=== PATIENT | female | born 1955 | race Hispanic/Latino ===

== ENCOUNTER 2017-02-21 11:43 | Emergency (ER) | payer SELFPAY ==
[~2017-02-21] VITALS: Ht 157.5 cm; Wt 85.0 kg
[~2017-02-21 11:43] MED LIST: AMBIEN5 MG PO; ATIVAN0.5 MG PO; BACTRIM DS1 TAB PO; BLOOD PRESSURE; BLOOD PRESSURE MED; CIPROFLOXACN500 MG PO; GLIPIZIDE10 MG PO; LISINOPRIL10 MG PO; LORTAB 5 OR; LORTAB 7.5 OR; METFORMIN500 MG PO; NAPROSYN500 MG PO; TOUJEO SOL300 UNIT/M SC; [UNRECOGNIZED DRUG - REMARK]
[2017-02-21] MEDS ORDERED: METFORMIN500 MG PO (12:21)
[2017-02-21] MEDS ORDERED: AMBIEN5 MG PO (12:22)
[2017-02-21 12:46] LABS: URINE BILIRUBIN - DIPSTICK NEGATIVE (NEGATIVE); URINE BLOOD DIPSTICK NEGATIVE (NEGATIVE); URINE CLARITY SL CLOUDY; URINE COLOR YELLOW; URINE GLUCOSE - DIPSTICK 500 mg/dL (NEGATIVE); URINE KETONE TRACE mg/dL (NEGATIVE); URINE LEUK ESTERASE NEGATIVE (NEGATIVE); URINE NITRITE - DIPSTICK NEGATIVE (Negative); URINE PH 5.5 (4.5-8.0); URINE PROTEIN - DIPSTICK NEGATIVE (NEG-TRACE); URINE SPECIFIC GRAVITY 1.025; URINE UROBILINOGEN - DIPSTICK 0.2 E.U./dL (0.2)
[2017-02-21 12:47] LABS: HEMATOCRIT 42.6 % (37.0-47.0); HEMOGLOBIN 14.2 g/dl (12.0-16.0); IMMATURE GRANULOCYTES 0.3 % (0.0-1.0); MEAN CELL VOLUME 85.2 fL CALC (80.0-100.0); MEAN CORPUSCULAR HGB 28.4 pG CALC (26.0-32.0); MEAN CORPUSCULAR HGB CONC 33.3 g/L CALC (32.0-36.0); NEUT# 10.98 thou/uL (2.00-7.15); RED CELL DISTRI WIDTH 13.9 % (11.5-15.5)
[2017-02-21 12:49] LABS: ALBUMIN 4.6 g/dL (3.2-5.0); ALKALINE PHOSPHATASE 88 u/l (38-126); AMYLASE 32 u/l (30-110); ANION GAP 19 (6-22 (CALC)); BILIRUBIN, TOTAL 0.8 mg/dL (0.0-1.4); BUN 18 mg/dL (7-17); BUN/CREATININE RATIO 30 (12-20 (CALC)); CALCIUM 9.6 mg/dL (8.4-10.2); CARBON DIOXIDE 25 mmol/l (22-30); CHLORIDE 97 mmol/l (95-108); CREATININE 0.6 mg/dL (0.5-1.0); GFR > 60 ML/MIN (>=60 (CALC)); GFR FOR AFR.AMER. > 60 ML/MIN (>=60 (CALC)); GLUCOSE 342 mg/dL (65-105); LIPASE 87 u/l (23-300); SGOT/AST 42 u/l (14-36); SGPT/ALT 51 u/l (9-52); SODIUM 136 mmol/l (137-146); TOTAL PROTEIN 7.3 g/dL (6.3-8.2)
[2017-02-21] MEDS ORDERED: LANTUS100 UNIT/M SC (21:13)
[2017-02-21 21:34] VITALS: BP 119/47
== END 2017-02-21 21:55 | disposition short-term general hospital (02) | DRG 392 ==
LOC: ED 11:43
PROVIDERS: Emergency Medicine
DX: R10.13 Epigastric pain (principal); D72.829 Elevated white blood cell count, unspecified; K86.9 Disease of pancreas, unspecified; E11.9 Type 2 diabetes mellitus without complications; I10 Essential (primary) hypertension
CPT/HCPCS: Q9967; S0164

== ENCOUNTER 2017-06-19 07:55 | Emergency (ER) | payer SELFPAY ==
[~2017-06-19] VITALS: Ht 157.5 cm; Wt 140.0 kg
[~2017-06-19 07:55] MED LIST changes: +LANTUS100 UNIT/M SC
[2017-06-19] MEDS ORDERED: AFRIN 12 HOUR0.05 % (08:16)
[2017-06-19] MEDS ORDERED: TESSALON PER100 MG PO (08:16)
[2017-06-19] MEDS ORDERED: BACTRIM DS1 TAB PO (08:16)
[2017-06-19 08:24] VITALS: BP 138/88
== END 2017-06-19 08:42 | disposition home or self-care (01) | DRG 153 ==
LOC: ED 07:55
DX: J01.90 Acute sinusitis, unspecified (principal); R05 Cough; R09.81 Nasal congestion; R09.89 Other specified symptoms and signs involving the circulatory and respiratory systems

== ENCOUNTER 2018-01-13 19:10 | Emergency (ER) | payer SELFPAY ==
[~2018-01-13] VITALS: Ht 157.5 cm; Wt 81.0 kg
[~2018-01-13 19:10] MED LIST changes: +AFRIN 12 HOUR0.05 %; +TESSALON PER100 MG PO
[2018-01-13] MEDS ORDERED: MOTRIN800 MG PO (19:27)
[2018-01-13] MEDS ORDERED: AMOXICILLIN500 MG PO (19:27)
[2018-01-13] MEDS ORDERED: TRAMADOL HCL50 MG PO (19:27)
[2018-01-13 19:35] VITALS: BP 164/94
== END 2018-01-13 19:35 | disposition home or self-care (01) | DRG 159 ==
LOC: ED 19:10
DX: S02.5XXA Fracture of tooth (traumatic), initial encounter for closed fracture (principal); K04.7 Periapical abscess without sinus; I10 Essential (primary) hypertension; E11.9 Type 2 diabetes mellitus without complications; X58.XXXA Exposure to other specified factors, initial encounter

== ENCOUNTER 2018-06-16 08:49 | Emergency (ER) | payer SELFPAY ==
[~2018-06-16] VITALS: Ht 157.5 cm; Wt 80.0 kg
[~2018-06-16 08:49] MED LIST changes: +AMOXICILLIN500 MG PO; +MOTRIN800 MG PO; +TRAMADOL HCL50 MG PO
[2018-06-16] MEDS ORDERED: VICTOZA18 MG/3 ML SC (09:31)
[2018-06-16] MEDS ORDERED: FLEXERIL PO (11:12)
[2018-06-16] MEDS ORDERED: TORADOL PO (11:12)
[2018-06-16 11:20] VITALS: BP 149/74
== END 2018-06-16 11:20 | disposition home or self-care (01) | DRG 556 ==
LOC: ED 08:49
DX: M79.604 Pain in right leg (principal)

== ENCOUNTER 2019-04-04 | Emergency (ER) | payer SELFPAY ==
[~2019-04-04] MED LIST changes: +FLEXERIL PO; +TORADOL PO; +VICTOZA18 MG/3 ML SC
[2019-04-04] MEDS ORDERED: VOLTAREN - GENE75 MG PO (21:09)
== END 2019-04-04 21:42 | disposition home or self-care (01) | DRG 558 ==
DX: M77.52 Other enthesopathy of left foot and ankle (principal); I10 Essential (primary) hypertension; E11.9 Type 2 diabetes mellitus without complications; Z79.4 Long term (current) use of insulin

== ENCOUNTER 2019-05-18 | Emergency (ER) | payer SELFPAY ==
[~2019-05-18] MED LIST changes: +VOLTAREN - GENE75 MG PO
[2019-05-18] MEDS ORDERED: CEPHALEXIN500 M1 PO (15:05)
== END 2019-05-18 15:23 | disposition home or self-care (01) | DRG 605 ==
PROC: 0HDQXZZ Extraction of Finger Nail, External Approach (ICD-10-PCS; principal; 2019-05-18)
DX: S61.102A Unspecified open wound of left thumb with damage to nail, initial encounter (principal); E11.9 Type 2 diabetes mellitus without complications; I10 Essential (primary) hypertension; W18.2XXA Fall in (into) shower or empty bathtub, initial encounter; Y92.002 Bathroom of unspecified non-institutional (private) residence as the place of occurrence of the external cause; Z79.4 Long term (current) use of insulin

== ENCOUNTER 2020-09-28 19:25 | Inpatient (IN) | payer SELFPAY ==
[~2020-09-28] VITALS: Ht 157.5 cm; Wt 78.0 kg
[~2020-09-28 19:25] MED LIST changes: +CEPHALEXIN500 M1 PO
--- NOTE | 2020-09-28 19:35 | NUR ---
TO ROOM VIA W/C. TRIAGED AT BEDSIDE.
--- NOTE | 2020-09-28 19:50 | NUR ---
PT RESTING COMPLAINTS FO CHILLS, TIRED ACHINESS JUST GENERAL MALAISE, DENIES N/V, PLAN OF CARE DISCUSSED AND COMFORT MEASURES PROVIDED
[2020-09-28] MEDS ORDERED: METFORMIN HCL500 M2 PO (20:01)
[2020-09-28] MEDS ORDERED: AMITRIPTYLIN25 MG PO (20:02)
[2020-09-28] MEDS ORDERED: HYDROCHLOROT25 MG PO (20:02)
[2020-09-28] MEDS ORDERED: GLIPIZIDE10 M2 PO (20:02)
[2020-09-28] MEDS ORDERED: LOSARTAN POTASS50 MG PO (20:03)
[2020-09-28 20:38] LABS: HEMATOCRIT 43.9 % (37.0-47.0); HEMOGLOBIN 14.5 g/dl (12.0-16.0); IMMATURE GRANULOCYTES 0.2 % (0.0-5.0); MEAN CELL VOLUME 86.8 fL CALC (80.0-100.0); MEAN CORPUSCULAR HGB 28.7 pG CALC (26.0-32.0); NEUT# 10.25 thou/uL (2.00-7.15); RED BLOOD COUNT 5.06 mill/uL (4.20-5.60); RED CELL DISTRI WIDTH 13.5 % (11.5-15.5)
[2020-09-28 20:52] LABS: ALKALINE PHOSPHATASE 83 u/l (38-126); AMYLASE 37 u/l (30-110); ANION GAP 16 (6-22 (CALC)); BILIRUBIN, TOTAL 0.5 mg/dL (0.0-1.4); BUN 23 mg/dL (8-23); BUN/CREATININE RATIO 20 (12-20 (CALC)); CARBON DIOXIDE 26 mmol/l (22-30); CHLORIDE 95 mmol/l (95-108); CREATININE 1.1 mg/dL (0.5-1.0); GFR 50 ML/MIN (>=60 (CALC)); GFR FOR AFR.AMER. > 60 ML/MIN (>=60 (CALC)); LIPASE 140 u/l (23-300); POTASSIUM 4.3 mmol/l (3.5-5.1); SGOT/AST 73 u/l (9-36); SODIUM 132 mmol/l (137-146); TOTAL PROTEIN 6.7 g/dL (6.3-8.2)
--- NOTE | 2020-09-28 21:10 | NUR ---
IV ACCESS OBTAINED EARLIER ALONG WITH BC AND BLOOD WORK, NO COMPLAINTS OFFERED, CALL QUINN WITHIN REACH
[2020-09-28 21:50] LABS: URINE BILIRUBIN - DIPSTICK NEGATIVE (NEGATIVE); URINE BLOOD DIPSTICK MODERATE (NEGATIVE); URINE COLOR YELLOW; URINE GLUCOSE - DIPSTICK 100 mg/dL (NEGATIVE); URINE KETONE NEGATIVE (NEGATIVE); URINE LEUK ESTERASE MODERATE (NEGATIVE); URINE NITRITE - DIPSTICK NEGATIVE (Negative); URINE PROTEIN - DIPSTICK TRACE mg/dL (NEG-TRACE); URINE SPECIFIC GRAVITY 1.015; URINE UROBILINOGEN - DIPSTICK 0.2 E.U./dL (0.2)
[2020-09-28 21:54] LABS: URINE BACTERIA MODERATE hpf; URINE SQUAMOUS EPITHELIAL CELL FEW EPI/hpf (0-FEW); URINE WBC 50-100 WBC/hpf (0-5)
--- NOTE | 2020-09-28 22:09 | NUR ---
IVF INFUSING, URINE SPECIMEN COLLECTED AND SENT, COMFORT MEASURES PROVIDED.
--- NOTE | 2020-09-28 23:15 | NUR ---
MD HILLIARD SPEAK WITH PT REGARDING ADMISSION RELATED TO CHANGES IN LAB WORK. PT VERBALIZES UNDERSTANDING, AND IS IN AGREEANCE. CALL CHEYENNE AGUILAR
--- NOTE | 2020-09-28 23:38 | NUR ---
CALL INTO [facility] FOR BED ASSIGNMENT
--- NOTE | 2020-09-29 00:04 | NUR ---
PT RESTING BED ASSIGNMENT REC'D, WILL CALL REPORT
--- NOTE | 2020-09-29 00:55 | NUR ---
REPORT CALLED LAVONNE SPAULDING ON [facility], ADIN ASSIGNEMTN REC'D, PT BELONGINGS RECORD COMPLETED. TELE BOX ASSIGNED
--- NOTE | 2020-09-29 01:03 | NUR ---
PT TRASNPORTED TO MED SURG WITH ALL BELONGINGS WELL. PT TOLERATED TRANSFER WITHOUT INCIDENT.
--- NOTE | 2020-09-29 01:05 | NUR ---
PT RECEIVED FROM ED TO ROOM 278. ARRIVES VIA W/C ACCOMPANIED BY ARLET STRATTON. PT AMBULATORY TO BED. GAIT UNSTEADY. PT DENIES PAIN AT THIS TIME. ORIENTED TO UNIT, ROOM, CALL QUINN, LIGHTS, TV. ICE WATER PROVIDED. CALL QUINN WITHIN REACH. AGREES TO CALL PRN.
[2020-09-29 01:10] VITALS: BP 145/60
--- NOTE | 2020-09-29 01:30 | NUR ---
PHYSICAL ASSESMENT COMPLETE. PT CURRENTLY C/O HEADACHE PAIN. SCHEDULED MEDICATIONS AND PRN MEDICATION ADMINISTERED, SEE E-MAR. PT HAS A LOW GRADE FEVER AT 99.1. PLAN OF CARE REVIEWED, PT DENIES QUESTIONS, VERBALIZES UNDERSTANDING. ITEMS WITHIN REACH, BED LOCKED IN LOW POSITION W/ BEDRAILS UP X2. CALL QUINN WITHIN REACH, AGREES TO CALL PRN. WILL CONTINUE TO MONITOR.
[2020-09-29 04:19] VITALS: BP 104/62
--- NOTE | 2020-09-29 05:09 | NUR ---
PT RESTING IN BED, NO SIGNS OF DISTRESS NOTED, RESP EVEN AND UNLABORED. PT VOICES NO NEEDS OR COMPLAINTS AT THIS TIME. CALL LIGHT IN REACH, CONTINUE TO MONITOR.
[2020-09-29 05:21] LABS: HEMOGLOBIN 12.6 g/dl (12.0-16.0); IMMATURE GRANULOCYTES 2.8 % (0.0-5.0); MEAN CELL VOLUME 87.1 fL CALC (80.0-100.0); MEAN CORPUSCULAR HGB 29.4 pG CALC (26.0-32.0); MEAN CORPUSCULAR HGB CONC 33.8 g/dL CAL (32.0-36.0); NEUT# 19.02 thou/uL (2.00-7.15); RED BLOOD COUNT 4.28 mill/uL (4.20-5.60); RED CELL DISTRI WIDTH 13.6 % (11.5-15.5)
[2020-09-29 05:34] LABS: HEMATOCRIT 37.3 % (37.0-47.0)
[2020-09-29 05:52] LABS: BILIRUBIN, TOTAL 0.5 mg/dL (0.0-1.4); CREATININE 1.2 mg/dL (0.5-1.0); POTASSIUM 3.8 mmol/l (3.5-5.1)
[2020-09-29 05:53] LABS: ALBUMIN 2.9 g/dL (3.2-5.0); TOTAL PROTEIN 5.3 g/dL (6.3-8.2)
[2020-09-29 07:00] VITALS: BP 99/67
--- NOTE | 2020-09-29 07:00 | NUR ---
PATIENT IN BED ALERT AND ORIENTED DENIES ANY NEEDS OR PAIN AT THIS TIME. PROCESS CONTROL SPECIALIST DONE SEE INTERVENTIONS. PATIENT LUNG EGAN ARE CLEAR AT THIS TIME. SIDERAILS ARE UP CALL LIGHT AND PERSONAL ITEMS AT BEDSIDE.
[2020-09-29 11:13] VITALS: BP 98/63
--- NOTE | 2020-09-29 11:18 | NUR ---
PATIENT COMPLAINING OF HEADACHE AT THIS TIME. PATIENT STATED HER PAIN IS A 5 OUT OF 10 AT THIS TIME. 650MG OF TYLENOL GIVEN AT THIS TIME. WILL CONTINUE TO MONITOR.
--- NOTE | 2020-09-29 11:51 | NUR ---
PATIENT LAYING IN BED AT THIS TIME. LOPEZ HOSE PLACED ON PATIENT AT THIS TIME. PATIENT STATED HER HEADACHE PAIN HAS GONE DOWN TO A 1-2 AT THIS TIME AND THE TYLENOL HELPED. WILL CONTINUE TO MONITOR.
--- NOTE | 2020-09-29 12:20 | NUR ---
WOUND DRESSING CHANGED AT THIS TIME. PICTURES TAKEN.
[2020-09-29 14:42] VITALS: BP 102/63
--- NOTE | 2020-09-29 16:42 | NUR ---
ACCU CHECK AT THIS TIME REPORTED A BLOOD GLUCOSE OF 459. PROVIDER NOTIFIED AND ORDER GIVEN TO INCREASE SLIDING SCALE COVERAGE TO HI-DOSE AND GIVE 14 UNITS. PROVIDER ALSO ORDERED LEVIMEIR 15 UNITS AT HS. WILL CONTINUE TO MONITOR.
--- NOTE | 2020-09-29 18:20 | NUR ---
PATIENT COMPLAINING OF PAIN IN RT. HIP AND STATED ITS A 5 OUT OF A PAIN SCALE OF 0-10. 650MG OF TYLENOL GIVEN AT THIS TIME WILL CONTINUE TO MONITOR.
[2020-09-29 18:59] VITALS: BP 117/68
--- NOTE | 2020-09-29 20:30 | NUR ---
PT IN BED, C/O SEVERE HEADACHE "TYLENOL IS NOT WORKING". NOTOFIED HISTOLOGICAL ILLUSTRATOR PHYSICIAN WHO ORDERED TRAMADOL 50MG PO PRN EVERY 6 HRS. TRAMADOL ADMINSTERED PER ORDER. F/U PAIN LEVEL 0/10. BS RESULTS AT HS-311, COVERED WITH 10U OF HUMALOG INSULIN PER ORDER. ALSO ADMINSTERED 15U OF LEVEMIRSQ PER ORDER. NO S/S OF DISTRESS NOTED. KNEE HIGH TEDS REMAIN IN PLACE. INSTRUCTED PT ON ECOLI IN URINE, ADVISED PT TO ALWAYS WIPE FROM FROM FRONT TO BACK D/T ECOLI CAN BE TRANSMITTED VIA A BM. PT INDICATED UNDERSTANDING TO INSTRUCTION GIVEN. ABT CONTINUES, NO COMPLICATIONS NOTED. SAFETY PRECAUTIONS IN PLACE, BED IN LOWEST POSITION, CALL LIGHT WITHIN REACH. WILL MONITOR
[2020-09-30] VITALS: BP 108/64
--- NOTE | 2020-09-30 01:06 | NUR ---
PT RESTING QUIETLY IN BED, INDICATED THAT THE PRN TRAMADOL THAT WAS ORDERED COMPLETELY ELIMATED PAIN, REPORTS 0/10. BREATHING REMAINS EVEN AND UNLABORED. NO COMPLAINTS VOICED AT THIS TIME. IV FLUIDS CONTINUE TO LAC RUNNING NS @ 125ML/HR. NO S/S OF DISTRESS NOTED. SAFETY PRECAUTIONS REMAIN IN PLACE, BED IN LOW POSITION, CALL LIGHT WITHIN REACH. WILL MONITOR
[2020-09-30 04:00] VITALS: BP 129/79
--- NOTE | 2020-09-30 04:10 | NUR ---
PT RESTING QUIETLY IN BED. REPORTED PAIN OF 8/10, ULTRAM ADMINSTERED AT 0240. PT REPORTS PAIN IMPROVED WITH MEDICATION. DENIES PAIN AT THIS TIME. BREATHING EVEN AND UNLABORED. LAB TECHNICHIAN ARMAND BLOOD SAMPLES THIS AM, PENDING RESULTS. SAFETY PRECAUTIONS REMAIN IN PLACE, WILL MONITOR
[2020-09-30 05:30] LABS: HEMATOCRIT 37.7 % (37.0-47.0); HEMOGLOBIN 12.4 g/dl (12.0-16.0); MEAN CELL VOLUME 87.7 fL CALC (80.0-100.0); MEAN CORPUSCULAR HGB 28.8 pG CALC (26.0-32.0); MEAN CORPUSCULAR HGB CONC 32.9 g/dL CAL (32.0-36.0); RED BLOOD COUNT 4.3 mill/uL (4.20-5.60); RED CELL DISTRI WIDTH 13.8 % (11.5-15.5)
[2020-09-30 05:42] LABS: ANION GAP 11 (6-22 (CALC)); BUN 19 mg/dL (8-23); BUN/CREATININE RATIO 24 (12-20 (CALC)); CARBON DIOXIDE 22 mmol/l (22-30); CHLORIDE 104 mmol/l (95-108); CREATININE 0.8 mg/dL (0.5-1.0); GFR > 60 ML/MIN (>=60 (CALC)); GFR FOR AFR.AMER. > 60 ML/MIN (>=60 (CALC)); POTASSIUM 3.9 mmol/l (3.5-5.1); SODIUM 133 mmol/l (137-146)
--- NOTE | 2020-09-30 07:00 | NUR ---
RECIEVED REPORT FROM ANGELICA SEPULVEDA
[2020-09-30 07:34] VITALS: BP 137/77
--- NOTE | 2020-09-30 07:34 | NUR ---
PT RESTING IN SMEI FOWLERS POSITION. PT IS A/O X3. ASSESSMENT AND VITALS COMPLETED. BP 137/77, HR 79, O2 93% ON ROOM AIR. RESPIRATIONS ARE EVEN AND UNLABORED WITH NO DISTRESS NOTED. LUNG SOUNDS ARE DIMINISHED IN LOWER LOBES. HEART RHYTHM NORMAL WITH TELE IN PLACE. BOWEL SOUNDS ARE ACTIVE. RADIAL AND PEDAL PULSES STRONG.#20G LAC INFUSING WITH IVF PER ORDER,SITE REMAINS HEALTHY AND PATENT. SKIN INTACT. LOPEZ HOSE APPLIED. PT DENIES OF ANY PAINS OR DISCOMFORTS AT THIS TIME. ACCUCHECK RESULTING IN 202, COVERAGE ADMINISTERED. ALL SAFETY PRECAUTIONS ARE IN PLACE WITH CALL LIGHT IN REACH. WILL CONTINUE TO MONITOR.
[2020-09-30 11:00] VITALS: BP 140/81
--- NOTE | 2020-09-30 12:05 | NUR ---
PT RESTING IN SEMI FOWLERS POSITION. PT REMAINS A/OX3. RESPIRATIONS ARE EVEN AND UNLABORED WITH NO DSITRESS NOTED. #20G LAC INFUSING WITH IVF PER ORDER, SITE REMAINS HEALTHY AND PATENT.TELE MONITORING IN PLACE. PT DENIES OF ANY PAINS OR DISCOMFORTS. ALL SAFETY PRECAUTIONS ARE IN PLACE WITH CALL LIGHT IN REACH. WILL CONTINUE TO MONITOR.
[2020-09-30 14:50] VITALS: BP 148/87
--- NOTE | 2020-09-30 15:46 | NUR ---
PT SITTING UP IN HIGH FOWLERS POSITION. RESPIRATIONS ARE EVEN AND UNLAORED WITH NO DISTRESS NOTED. TELE MONITORING IN PLACE. #20G LAC INFUSING WITH IVF PER ORDER, SITE REMAINS HEALTHY AND PATENT. PT DENIES OF ANY NEEDS AT THIS TIME. ALL SAFETY PRECAUTIONS ARE IN PLACE WITH CALL LIGHT IN REACH. WILL CONTINUE TO MONITOR.
--- NOTE | 2020-09-30 17:09 | NUR ---
PT COMPAINS OF HEADACHE, REQUEST ULTRAM. ULTRAM PROVIDED. PT DENIES ANY ADDITIONAL NEEDS. WILL CONTINUE TO MONITOR
[2020-09-30 19:00] VITALS: BP 146/80
--- NOTE | 2020-09-30 19:10 | NUR ---
REPORT RECEIVED FROM Zan ARAGON LPN, CARE OF PT ASSUMED AT THIS TIME.
--- NOTE | 2020-09-30 20:00 | NUR ---
POINT OF CARE GLUCOSE 360 mg/dl REPORTED BY Maryse OLIVEIRA CNA.
--- NOTE | 2020-09-30 20:10 | NUR ---
PT AMBULATING IN HALLWAY. GAIT STEADY AND BALANCED.
--- NOTE | 2020-09-30 21:20 | NUR ---
PT REQUESTS CRANBERRY JUICE. OFFERED PT ALTERNATIVE OF DIET SODA AND DIABETIC HS SNACK. PT AGREES. PLAN OF CARE REVIEWED AND EDUCATION PROVIDED REGARDING DIABETES, GLUCOSE CONTROL, SUGAR AND CARB INTAKE/DIETARY CONSIDERATIONS. PT VERBALIZES UNDERSTANDING AND APPEARS RECEPTIVE TO PROVIDED EDUCATION. WILL CONTINUE TO REINFORCE.
--- NOTE | 2020-09-30 21:30 | NUR ---
SCHEDULED MEDICATIONS ADMINISTERED. SEE E-MAR. PHYSICAL ASSESMENT COMPLETED AT THIS TIME. SEE SHIFT ASSESMENT. L-AC #20G PATENT AND INFUSING NS @50ML/H. TELE #[id number] ON PT, PT IS NSR 80 REPORTED BY [place], [place] [employer]. PT DENIES FURTHER NEEDS AT THIS TIME. CALL QUINN WITHIN REACH, AGREES TO CALL PRN.
[2020-10-01] VITALS: BP 140/74
--- NOTE | 2020-10-01 01:07 | NUR ---
PT APPEARS TO BE SLEEPING COMFORTABLY. LAYING IN BED, EYES CLOSED, SNORING GENTLY. RESPIRATIONS REGULAR AND UNLABORED. CALL QUINN REMAINS WITHIN REACH.
[2020-10-01 04:00] VITALS: BP 137/82
--- NOTE | 2020-10-01 04:45 | NUR ---
Iris BENITEZ MATHEMATICIAN RESEARCH IN ROOM COLLECTING BLOOD WORK.
[2020-10-01 06:10] LABS: HEMATOCRIT 36.5 % (37.0-47.0); HEMOGLOBIN 12.4 g/dl (12.0-16.0); MEAN CELL VOLUME 86.9 fL CALC (80.0-100.0); MEAN CORPUSCULAR HGB 29.5 pG CALC (26.0-32.0); RED BLOOD COUNT 4.2 mill/uL (4.20-5.60); RED CELL DISTRI WIDTH 13.7 % (11.5-15.5)
[2020-10-01 06:23] LABS: ANION GAP 11 (6-22 (CALC)); BUN 12 mg/dL (8-23); BUN/CREATININE RATIO 20 (12-20 (CALC)); CARBON DIOXIDE 23 mmol/l (22-30); CHLORIDE 101 mmol/l (95-108); CREATININE 0.6 mg/dL (0.5-1.0); GFR > 60 ML/MIN (>=60 (CALC)); GFR FOR AFR.AMER. > 60 ML/MIN (>=60 (CALC)); SODIUM 132 mmol/l (137-146)
[2020-10-01 07:54] VITALS: BP 148/78
--- NOTE | 2020-10-01 07:54 | NUR ---
PT SITTING IN CHAIR EATING BREAKFAST. A&O X4. NO DISTRESS NOTED. PT DENIES ANY PAIN AT THIS TIME. CLEAR BREATH SOUNDS WITH POSTERIOR EXPIRATORY WHEEZES HEARD UPON AUSCULTATION. ACTIVE BOWEL SOUNDS X4 QUADRANTS. FINGER LIFT OPERATOR IN PLACE. IV HEALTHY AND PATENT WITH IVF INFUSING PER MAR ORDERS. ASSESSMENT COMPLETED. DISCUSSED POC. CALL LIGHT PLACED WITHIN REACH.
--- NOTE | 2020-10-01 08:10 | NUR ---
PRELIMINARY BLOOD CULTURE CALLED TO CHAPARRITA SAM, GROWING GRAM (-) USMAN CHANGE ROCEPHIN TO 2 GRAM.
[2020-10-01] MEDS ORDERED: KEFLEX500 MG PO (10:57)
--- NOTE | 2020-10-01 12:05 | NUR ---
D/C INSTRUCTIONS GIVEN TO PT. PRESCRIPTION GIVEN TO PT FOR GLUCOMETER. NO ADDITIONAL QUESTIONS AT THIS TIME.
--- NOTE | 2020-10-01 12:13 | NUR ---
Discharge instructions given, prescription for glucometer given. Patient verbalizes understanding of same. Pt educated on importance of monitoring blood pressure and blood glucose levels at home, educational material given. Pt encourgaed to keep log of both BP and BS readings. Instructed pt to hold Losartan until re-revaluated by PCP. Discharged in stable condition via wheelchair to home with staff. All belongings sent with pt.
== END 2020-10-01 12:13 | disposition home or self-care (01) | DRG 690 ==
LOC: ED 19:25 → ED-I 23:15 → ED 23:34 → MS2 23:35
PROVIDERS: Nurse Practitioner; ADMIT Internal Medicine; ATTEND Internal Medicine
DX: N39.0 Urinary tract infection, site not specified (principal); N17.9 Acute kidney failure, unspecified; E87.2 Acidosis; R78.81 Bacteremia; E11.65 Type 2 diabetes mellitus with hyperglycemia; I10 Essential (primary) hypertension; E86.0 Dehydration; B96.20 Unspecified Escherichia coli [E. coli] as the cause of diseases classified elsewhere; Z87.74 Personal history of (corrected) congenital malformations of heart and circulatory system; Z79.84 Long term (current) use of oral hypoglycemic drugs; Z20.822 Contact with and (suspected) exposure to COVID-19

== ENCOUNTER 2024-05-28 06:57 | Emergency (ER) | payer MEDICARE ==
[~2024-05-28] VITALS: Ht 157.5 cm; Wt 176.0 kg
[2024-05-28] VITALS (11 sets, daily range): BP systolic 119–150; BP diastolic 52–93
[~2024-05-28 06:57] MED LIST changes: +AMITRIPTYLIN25 MG PO; +GLIPIZIDE10 M2 PO; +HYDROCHLOROT25 MG PO; +KEFLEX500 MG PO; +LOSARTAN POTASS50 MG PO; +METFORMIN HCL500 M2 PO; +METHOCARBAMOL500 MG PO; +NAPROXEN500 MG PO
[2024-05-28] MEDS ORDERED: HUMALOG100 UNIT (07:20)
[2024-05-28] MEDS ORDERED: METHOCARBAMOL 500 MG/TAB PO ONE (07:30)
[2024-05-28] MEDS ORDERED: KETOROLAC TROMETHAMINE 30 MG/ML SDV IM ONE (07:30)
[2024-05-28 08:05] LABS: BASO% 0.3 % (0-3); EOS% 3.9 % (0-8); HEMOGLOBIN 11.7 g/dl (12.0-16.0); IMMATURE GRANULOCYTES 0.2 % (0.0-5.0); LYMPH% 6.2 % (15-41); MEAN CELL VOLUME 78.9 fL CALC (80.0-100.0); MEAN CORPUSCULAR HGB 24.9 pG CALC (26.0-32.0); MEAN CORPUSCULAR HGB CONC 31.6 g/dL CAL (32.0-36.0); MONO% 7.5 % (2-13); NEUT# 10.08 thou/uL (2.00-7.15); NEUT% 81.9 % (42-76); RED BLOOD COUNT 4.69 mill/uL (4.20-5.60); RED CELL DISTRI WIDTH 17.6 % (11.5-15.5)
[2024-05-28 08:19] LABS: ALBUMIN 4.3 g/dL (3.2-5.0); ALKALINE PHOSPHATASE 108 u/l (38-126); BILIRUBIN, TOTAL 0.7 mg/dL (0.02-1.3); BUN 26 mg/dL (8-23); BUN/CREATININE RATIO 32 (12-20 (CALC)); CHLORIDE 96 mmol/l (95-108); CREATININE 0.8 mg/dL (0.5-1.0); ESTIMATED GFR 81 ML/MIN (>=90 (CALC)); POTASSIUM 3.9 mmol/l (3.5-5.1); SODIUM 133 mmol/l (137-146); TOTAL PROTEIN 7.2 g/dL (6.3-8.2)
[2024-05-28 08:23] LABS: ANION GAP 11 (6-22 (CALC)); CARBON DIOXIDE 30 mmol/l (22-30); SGOT/AST 83 u/l (9-36)
[2024-05-28] MEDS ORDERED: EC-NAPROXEN500 MG PO (09:25)
[2024-05-28] MEDS ORDERED: FLEXERIL5 M1 PO (09:25)
== END 2024-05-28 09:34 | disposition home or self-care (01) ==
LOC: ED 06:57
PROVIDERS: Family Medicine
DX: M54.2 Cervicalgia (principal); M25.512 Pain in left shoulder; I10 Essential (primary) hypertension; E11.9 Type 2 diabetes mellitus without complications; Z87.74 Personal history of (corrected) congenital malformations of heart and circulatory system; Z79.4 Long term (current) use of insulin; Z79.84 Long term (current) use of oral hypoglycemic drugs